=== PATIENT | female | born 1975 | race American Indian/Alaskan Native ===

== ENCOUNTER 2017-01-05 02:53 | Emergency (ER) | payer OTHER ==
[2017-01-05 04:28] LABS: Alanine Aminotransferase 12 units/L (7-56); Albumin 3.7 g/dL (3.9-5); Albumin/Globulin Ratio 1.1 %; Alkaline Phosphatase 59 units/L (35-129); Anion Gap 19 mmol/L; BUN/Creatinine Ratio 11.42; Blood Urea Nitrogen 8 mg/dL (7-17); Calcium 8.6 mg/dL (8.4-10.2); Carbon Dioxide 22 mmol/L (22-30); Chloride 102.1 mmol/L (98-107); Glucose 114 mg/dL (65-100); Lipase 24 units/L (13-60); Potassium 4.6 mmol/L (3.6-5.0); Sodium 138 mmol/L (137-145); Total Protein 7.1 g/dL (6.3-8.2)
[2017-01-05 04:30] LABS: Basophils % (Auto) 0.4 % (0.0-1.8); Eosinophils % (Auto) 0.6 % (0.0-4.3); Hematocrit 36.2 % (30.3-42.9); Hemoglobin 11.5 gm/dl (10.1-14.3); Mean Corpuscular HGB Conc 32 % (30-34); Mean Corpuscular Volume 73 fl (79-97); Platelet Count 253 K/mm3 (140-440); Red Blood Count 4.95 M/mm3 (3.65-5.03); Red Cell Distribution Width 18.8 % (13.2-15.2); White Blood Count 13.3 K/mm3 (4.5-11.0)
[2017-01-05 04:32] LABS: Mean Corpuscular Hemoglobin 23 pg (28-32)
[2017-01-05 04:33] LABS: Bilirubin,Urine NEG (Negative); Blood,Urine SM (Negative); Ketones,Urine NEG (Negative); Leukocyte Esterase,Urine NEG (Negative); Mucus,Urine FEW /HPF; Nitrite,Urine NEG (Negative); Protein,Urine <15 mg/dL mg/dL (Negative); Urobilinogen,Urine < 2.0 mg/dL (<2.0); WBC,Urine < 1.0 /HPF (0.0-6.0)
[2017-01-05] MEDS ORDERED: NACL ONE (07:48)
[2017-01-05] MEDS ORDERED: MORPHINE IV ONE (07:56)
--- NOTE | 2017-01-05 07:56 | Emergency Department Report ---
ED Abdominal Pain HPI - General Chief Complaint: Abdominal Pain Stated Complaint: ABD PAIN Time Seen by Provider: 01/05/17 07:40 Source: patient Mode of arrival: Ambulatory Limitations: No Limitations - History of Present Illness Initial Comments: Patient is a 47-year-old female with no past medical history presenting to the ER complaining of abdominal pain. Patient reports for the last 3 days she's had constant left lower quadrant pain described as sharp in nature with radiation to the left flank to the left back, and at times to the left groin. Currently the pain is mild and is intermittent. Patient reports she has not tried any [id number] analgesics. Patient reports normal bowel movements and flatus. History of hernia repair at age 3. Otherwise no fevers, chills, nausea, vomiting, shortness of breath, chest pain, diarrhea, trauma, renal colic , hematuria, dysuria, travel, or sick contacts MD Complaint: abdominal pain, flank pain -: Gradual, days(s) (3) Location: LLQ, L flank Radiation: L flank, back Migration to: no migration Quality: sharp Consistency: constant, intermittent Improves With: nothing Worsens With: nothing Associated Symptoms: denies other symptoms - Related Data Previous Rx's Medication Instructions Recorded Last Taken Type HYDROcodone/APAP 5-325 [[place] 1 each PO Q6HR PRN #12 tablet 01/05/17 Unknown Rx 5/325] Allergies Allergy/AdvReac Type Severity Reaction Status Date / Time No Known Allergies Allergy Unverified 03/06/15 09:43 ED Review of Systems ROS: Stated complaint: ABD PAIN Other details as noted in HPI Comment: All other systems reviewed and negative ED Past Medical Hx - Past Medical History Previous Medical History?: Yes Additional medical history: ruptured ovarian cyst - Social History Smoking Status: Unknown if ever smoked Substance Use Type: None - Medications Home Medications: Home Medications Medication Instructions Recorded Confirmed Last Taken Type HYDROcodone/APAP 5-325 [[place] 1 each PO Q6HR PRN #12 tablet 01/05/17 Unknown Rx 5/325] ED Physical Exam - General Limitations: No Limitations General appearance: alert, in no apparent distress - Head Head exam: Present: atraumatic, normocephalic - Eye Eye exam: Present: normal appearance - ENT ENT exam: Present: mucous membranes moist - Neck Neck exam: Present: normal inspection - Respiratory Respiratory exam: Present: normal lung sounds bilaterally. Absent: respiratory distress - Cardiovascular Cardiovascular Exam: Present: regular rate, normal rhythm. Absent: systolic murmur, diastolic murmur, rubs, gallop - GI/Abdominal GI/Abdominal exam: Present: soft, tenderness, normal bowel sounds. Absent: distended, guarding, rebound, rigid (RLQ, greater in the LLQ, no adnexal tenderness), mass, pulsatile mass - Extremities Exam Extremities exam: Present: normal inspection - Back Exam Back exam: Present: normal inspection - Neurological Exam Neurological exam: Present: alert, oriented X3 - Psychiatric Psychiatric exam: Present: normal affect, normal mood - Skin Skin exam: Present: warm, dry, intact, normal color. Absent: rash ED Course Vital Signs 01/05/17 01/05/17 01/05/17 03:34 06:58 07:00 Temperature 98.1 F Pulse Rate 80 64 Respiratory 14 18 Rate Blood Pressure 116/78 103/61 O2 Sat by Pulse 100 100 100 Oximetry 01/05/17 01/05/17 07:30 08:05 Temperature Pulse Rate 66 Respiratory 15 16 Rate Blood Pressure 99/59 O2 Sat by Pulse 98 99 Oximetry ED Medical Decision Making - Lab Data Result diagrams: 01/05/17 03:51 01/05/17 03:51 - Radiology Data Radiology results: report reviewed, image reviewed CXR: No acute findings as visualized by hi CT a/p: Enlarged uterus containing numerous fibroids. 2 these fibroids are on the left lower density than previously seen, could be degenerating, appearance new since prior study. Mild bilateral pyelocaliectasis, more prominent than previously seen likely secondary to enlarged uterus. Copy of study given to patient Critical care attestation.: If time is entered above; I have spent that time in minutes in the direct care of this critically ill patient, excluding procedure time. ED Disposition Clinical Impression: Abdominal pain, Uterine fibroid, Pyelocaliectasis Disposition: DISCHARGED TO HOME OR SELFCARE Is pt being admited?: No Condition: Stable Instructions: Abdominal Pain (ED), Uterine Fibroids (ED) Prescriptions: HYDROcodone/APAP 5-325 [[place] 5/325] 1 each PO Q6HR PRN #12 tablet PRN Reason: Pain Referrals: PRIMARY CARE,MD [Primary Care Provider] - 3-5 Days
--- NOTE | 2017-01-05 09:24 | Cat Scan Report ---
FINAL REPORT EXAM: CT ABDOMEN PELVIS W CON HISTORY: LLQ pain TECHNIQUE: CT scan of the abdomen and pelvis with IV contrast. Multiplanar reconstructions. PRIORS: 03/06/2015 FINDINGS: Religion Department Chair images are nondiagnostic secondary to overlying scan lines. Axial, sagittal, and coronal images cannot be crosslinked for reference/level confirmation. Lung bases show no significant abnormality. No free intraperitoneal gas seen. Tiny lesion in the a patent dome, not clearly seen previously, likely a cyst or hemangioma. Liver otherwise unremarkable. Normal-appearing biliary tree and gallbladder. Spleen shows no significant abnormality. Pancreas shows no significant abnormality. Adrenal glands show no significant abnormality. Mild bilateral pyelocaliectasis, a little more prominent than previously seen. Kidneys otherwise unremarkable. Abdominal aorta is nonaneurysmal. The appendix appears normal. No periappendiceal inflammatory changes. Enlarged uterus containing many fibroids its. Large fibroid in the uterine fundus on the left measures 6.1 x 6.0 cm on 99 of series 102. This same fibroid previously was heterogeneous, soft tissue density, now is lower density. Similar appearance of an adjacent smaller fibroid. No ureteral calculus identified on either side. Tiny amount of free fluid in the pelvis. IMPRESSION: 1. Enlarged uterus containing numerous fibroids. Two of these fibroids on the left are lower density than previously seen, could be degenerating, appearance new since the prior study. 2. Mild bilateral pyelocaliectasis, more prominent than previously seen, likely secondary to enlarged uterus.
[2017-01-05 10:46] VITALS: BP 108/68
== END 2017-01-05 10:46 | disposition home or self-care (01) ==
LOC: ED 02:53
DX: D25.9 Leiomyoma of uterus, unspecified (principal); N13.30 Unspecified hydronephrosis
CPT/HCPCS: 36415; 74177; 80053; 81001; 83690; 84703; 85025; 99284; Q9967